=== PATIENT | female | born 1990 | race Caucasian/White ===

== ENCOUNTER 2025-05-16 13:11 | Outpatient (AMB) | payer BC, SELFPAY ==
[2025-05-16 13:36] VITALS: BP 129/82; PULSE 94; RESP 17; TEMP 36.7; O2SAT 99; BMI 26.6
--- NOTE | 2025-05-16 13:36 | AMB.OBINITIA ---
Vital Signs 05/16/25 13:36 Height 1.63 m Height Method Measured Weight 70.364 kg Weight Measurement Method Standing Scale BMI 26.6 BP 129/82 Blood Pressure Source Automatic Cuff Blood Pressure Location Right Upper Arm Position Sitting Respiration 17 Pulse 94 Pulse Source Monitor Temp 98.0 F Temp Source Temporal Artery Scan Pulse Oximetry (%) 99 Oxygen Delivery Method Room Air Allergies/Home Meds Allergies & Medications Allergies NKA Allergy (Unknown, Uncoded 05/21/25 11:30) Medication Reconciliation lorazepam 0.5 mg tablet 0.5 mg PO TID PRN ANXIETY #30 tabs 12/22/16 [Rx Confirmed 05/21/25] Intake Visit Data Collection New Patient or Established: New Patient (never been to [facility]) Reason for Visit:: AMENORRHEA/ Consent obtained for Telemed Visit: No Seen by Clinical Staff ONLY (RN/MA): No Newspaper Reporter Required: No Do You Feel Safe at Home: Yes Authorities Contacted: N/A PCP or OBGYN visit in last 3 months: No Hx Now: Yes Are you currently on any form of Control: No Last menstrual period: 02/27/25 Pain Present Currently: No Pain Scale Used: Rivas-Schmidt/Numerical Pain scale:: 0 Smoking Status Smoking Status: Never smoker Questionnaires Covid-19 Vaccine Questionnaire Has patient been vacinated for Covid-19 Have you been vacinated for Covid-19: Yes PHQ-9 PHQ-2 Over the last 2 weeks, how often have you been bothered by any of the following problems? 1. Little interest or pleasure in doing things: not at all 2. Feeling down, depressed, or hopeless: not at all Total score: 0 PHQ-9 3. Trouble falling or staying asleep, or sleeping too much: Not at all 4. Feeling tired or having little energy: Not at all 5. Poor appetite or overeating: Not at all 6. Feeling bad about yourself - or that you are a failure or have let yourself or your family down: Not at all 7. Trouble concentrating on things, such as reading the newspaper or watching television: Not at all 8. Moving or speaking so slowly that other people could have noticed? - Or the opposite - being so fidgety or restless that you have been moving around a lot more than usual: not at all 9. Thoughts that you would be better off or of hurting yourself in some way: Not at all Total score: 0 If you checked off any problems, how difficult have these problems made it for you to do your work, take care of things at home, or get along with other people?: not difficult at all Source: Developed by Drs. Odin Jamison, Madison Pena, Caleb Caballero and colleagues, with an educational ronald from [employer]. Social History Living Situation History Marital Status: Lives With: Family Housing: House Housing Other:: 4 y/o son, PAPO. 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 This was in [place]. She was my patient for her PNC. She also had gestational DM that . She had a recent SAB in 2023 but passed it on her own and did not require a D and C. She did not release her old records to me today. She presents today with her reporting fatigue and mild nausea but no severe vomiting. OB Ultrasound Indication Indication: Size, dates, viability OB Ultrasound Ultrasound technique: transabdominal Gestational sac assessment: Presence, location, size, shape: Live IUP with FHTs of 143. CRL 5.01 cm. GA 11 weeks. 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 No DM, HTN or asthma. Has mild anxiety OB Initial Visit OB Flowsheet OB Flowsheet Initial Weight: Not Recorded Date <del>?</del> EGA Weight BP Alb Glu CTX Pres Fundal ht FHR Mov Dilation Station Effacement Hx Notes Visit Note 05/16/25 <del>?</del> 11w 5d 70.364 kg 129/82 145 New OB visit. Labs ordered, official US ordered. NIPT ordered. Menstrual History Menstrual reliability: definite Flow: normal Menstrual regularity: regular Monthly: Yes Age at menarche: 11 On control pills at conception: No Date of positive home test: 03/16/25 OB History : 3 Para: 1 Hx # Pregnancies: 1 Hx Total # of Abortions (Spontaneous & Elective): 1 # of Living Children: 1 Delivery History 1st : Child's name: PAPO date: 07/30/21 sex: male Gestational age at delivery (weeks): 36 Infection History & Risk Evaluation History of STDs: none HIV risk evaluation: low risk Hepatitis B risk evaluation: low risk Patient or partner has history of Genital Herpes: No Genetic Screening & History Genetic Screening/Teratology Counseling - Includes patient, baby's father, or anyone in either family with: 1. Patient's age 35 years or older as of estimated date of delivery: No 2. Thalassemia (Yakut, Serbian, Mediterranean, or Background); MCV less than 80: No 3. Neural Tube Defect (Meningomyelocele, Spina Bifida, or Anencephaly): No 4. Congenital Heart Defect: No 5. Down Syndrome: No 6. Robert-Sachs (Ashkenazi Samaritan, Cajun, Telugu Nepalese): No 7. Cameron Disease (Ashkenazi Samaritan): No 8. Familial Dysautonomia (Ashkenazi Samaritan): No 9. Sickle Cell Disease or Trait (): No 10. Hemophilia or other blood disorders: No 11. Muscular Dystrophy: No 12. Cystic Fibrosis: No 13. [place]'s Chorea: No 14. Mental Retardation/Autism: No 15. Other inherited genetic or chromosomal disorder: No 16. Maternal Metabolic Disorder (EG,TYPE 1 Diabetes, PKU): No 17. Patient or baby's father had a child with defects not listed above: No 18. Recurrent loss or a stillbirth: No 19. Medications (including supplements, vitamins, herbs or otc drugs)/illicit/recreational drugs/alcohol since last menstrual period: No 20. Any other: No Infection History 1. Live with someone with TB or exposed to TB: No 2. Rash or viral illness since last menstrual period: No 3. Hepatitis B,C: No Other (see comments) Source: [employer] Exam Narrative Physical exam: well-healed pfannensteil scar General Limitations: no limitations General Appearance: alert, in no apparent distress, comfortable, cooperative, healthy appearing and well groomed Neck Neck exam: Present normal inspection, full ROM and trachea midline Chest Chest inspection: Present normal inspection and symmetric chest wall rise Resp Respiratory exam: Present normal lung sounds bilaterally Card Cardiovascular exam: Present regular rate, normal rhythm and normal heart sounds Abdominal Abdominal exam: Present soft and normal bowel sounds Extremities Extremities exam: Present normal inspection and full ROM Psych Psychiatric exam: Present normal affect and normal mood Skin Skin exam: Present warm, dry, intact and normal color Office Procedures OB Clinic LOC & Office Proc's Nursing/Assessment Patient Status: Established Patient OB Clinic Nursing Assessment: Medication Reconciliation, Update PMH in EMR and Vital Signs OB Clinic Coordination of Care: Complex Care and Chronic Disease 1-5, Consent,records obtained, informed consent, Education Simp Pt/Fam, Lab and Imaging orders, Results/Orders obtained and Staff clarify orders Special Needs: Heart tones Miscellaneous Interventions: Blood/Urine Collection Established Patient Charge Established Patient Point Assignment: 165 Established Patient Point Charge: EP Level 5 (160-above) In Clinic Bedside tests Bedside HCG: Yes Assessment & Plan Diagnosis / Problem List (1) : Status: Acute Qualifiers: Weeks of gestation: 12 weeks Qualified Code(s): Z3A.12 - 12 weeks gestation of (2) Previous section: Status: Acute Plan: For repeat CS at 39 weeks. Take baby ASA for hx PIH. PNV. All questions answered.
== END 2025-05-16 13:54 | disposition home or self-care (01) ==
LOC: HODSOBC 13:11
PROVIDERS: PCP Family Medicine; Referring Provider Family Medicine; Supervising Provider Obstetrics & Gynecology; Visit Provider Obstetrics & Gynecology
DX: O09.291 Supervision of pregnancy with other poor reproductive or obstetric history, first trimester (principal); O34.219 Maternal care for unspecified type scar from previous cesarean delivery; O09.521 Supervision of elderly multigravida, first trimester; Z3A.11 11 weeks gestation of pregnancy; Z87.59 Personal history of other complications of pregnancy, childbirth and the puerperium; Z86.32 Personal history of gestational diabetes
CPT/HCPCS: 81025; 99215; G0463

== ENCOUNTER 2025-06-16 08:41 | Outpatient (AMB) | payer BC, SELFPAY ==
[2025-06-16 08:55] VITALS: BP 123/82; PULSE 82; RESP 17; TEMP 36.3; O2SAT 99; BMI 26.3
--- NOTE | 2025-06-16 08:55 | OBCLNT_ITS ---
Vital Signs 06/16/25 08:55 Height 1.63 m Height Method Measured Weight 69.967 kg Weight Measurement Method Standing Scale BMI 26.3 BP 123/82 Blood Pressure Source Automatic Cuff Blood Pressure Location Right Upper Arm Position Sitting Respiration 17 Pulse 82 Pulse Source Monitor Temp 97.4 F Temp Source Temporal Artery Scan Pulse Oximetry (%) 99 Oxygen Delivery Method Room Air Allergies/Home Meds Allergies & Medications Allergies NKA Allergy (Unknown, Uncoded 06/16/25 08:56) Medication Reconciliation lorazepam 0.5 mg tablet 0.5 mg PO TID PRN ANXIETY #30 tabs 12/22/16 [Rx Confirmed 06/16/25] Intake Visit Data Collection New Patient or Established: Established Patient (seen at [facility] within 3 years) Reason for Visit:: OBC\ULTRASOUNDS Consent obtained for Telemed Visit: No Seen by Clinical Staff ONLY (RN/MA): No Fuel Technician Required: No Do You Feel Safe at Home: Yes Authorities Contacted: N/A PCP or OBGYN visit in last 3 months: Yes Date of Last PCP or OBGYN visit: 05/16/25 Hx Now: Yes Are you currently on any form of Control: No Pain Present Currently: No Pain Scale Used: Rivas-Schmidt/Numerical Pain scale:: 0 Smoking Status Smoking Status: Never smoker Questionnaires Covid-19 Vaccine Questionnaire Has patient been vacinated for Covid-19 Have you been vacinated for Covid-19: Yes PHQ-9 PHQ-2 Over the last 2 weeks, how often have you been bothered by any of the following problems? 1. Little interest or pleasure in doing things: not at all PHQ-9 8. Moving or speaking so slowly that other people could have noticed? - Or the opposite - being so fidgety or restless that you have been moving around a lot more than usual: not at all Source: Developed by Drs. Odin Jamison, Madison Pena, Caleb Caballero and colleagues, with an educational ronald from [employer]. Social History Living Situation History Marital Status: Lives With: Family Housing: House Housing Other:: 4 y/o sonARASELI. 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 She has a history of x 1 in 2020 for HELLP syndrome. Care OB Visit Log OB Flowsheet Initial Weight: Not Recorded Date -?-?-?-?-?-?-?-?-?-?-?-?- EGA Weight BP Alb Glu CTX Pres Fundal ht FHR Mov Dilation Station Effacement Hx Notes Visit Note 05/16/25 -?-?-?-?-?-?-?-?-?-?-?-?- 11w 5d 70.364 kg 129/82 145 New OB visit. Labs ordered, official US ordered. NIPT ordered. 06/16/25 -?-?-?-?-?-?-?-?-?-?-?-?- 16w 1d 69.967 kg 123/82 16 137 No movement yet no vaginal bleeding. Reviewed labs. No urine culture or urine gonorrhea chlamydia checked. These were ordered through [facility] [facility]. BREE Calculator Estimated Delivery Date Method Current WG Current Estimate 11/30/25 Ultrasound #1 16w 1d Other Estimates 12/04/25 LMP (Uncertain) 15w 4d Expected Delivery Route/Plan Repeat History of HELLP on baby aspirin Specific Issue/Plans Previous x 1 for elective repeat Notes Visit Date: 06/16/25 Last Updated by: Teresa Davies (OB Clinic)MD NIPT normal. Gender is a surprise. Will refer for level [address] Tucker as patient is AMA Patient recently had strep throat with swollen lymph nodes on her right throat. This is improved. She went to a walk-in clinic and was given amoxicillin. Visit Date: 05/16/25 Last Updated by: Teresa Davies (OB Clinic)MD [facility] Labs [facility]: O+/Ab-/RI/RPR NR/ HIV-/Hep BSag-/Hgb 11.5. NIPT 46 XY US CA imaging [place]:05/23/25 Live IUP CRL 6.3 cm 12 5/7 weeks EDC 2/1/26 Office Procedures OB Clinic LOC & Office Proc's Nursing/Assessment Patient Status: Established Patient OB Clinic Nursing Assessment: Medication Reconciliation, Update PMH in EMR and Vital Signs OB Clinic Coordination of Care: Complex Care and Chronic Disease 1-5, Education Complex Pt/Fam, Consent,records obtained, informed consent, Education Simp Pt/Fam, 4+ Authorizations needed and Lab and Imaging orders Special Needs: Heart tones Established Patient Charge Established Patient Point Assignment: 165 Established Patient Point Charge: EP Level 5 (160-above) Assessment & Plan Diagnosis / Problem List (1) Previous section: Status: Acute Plan: For repeat at 39 weeks (2) : Status: Acute Qualifiers: Weeks of gestation: 16 weeks Qualified Code(s): Z3A.16 - 16 weeks ges tation of (3) Advanced maternal age (AMA) in : Status: Acute Plan: Normal NIPT. Gender is a surprise. For level 2 ultrasound. On baby aspirin. Additional Plan Follow Up: 4 Weeks
== END 2025-06-16 09:12 | disposition home or self-care (01) ==
LOC: HODSOBC 08:41
PROVIDERS: Supervising Provider Obstetrics & Gynecology; Visit Provider Obstetrics & Gynecology
DX: O09.522 Supervision of elderly multigravida, second trimester (principal); Z3A.16 16 weeks gestation of pregnancy; Z98.891 History of uterine scar from previous surgery
CPT/HCPCS: 99215; G0463

== ENCOUNTER 2025-07-18 08:56 | Outpatient (AMB) | payer BC, SELFPAY ==
[2025-07-18 09:08] VITALS: BP 118/78; PULSE 88; RESP 16; TEMP 36.6; O2SAT 98; BMI 28.3
--- NOTE | 2025-07-18 09:08 | AMB.OBVISIT ---
Vital Signs 07/18/25 09:08 Height 1.63 m Height Method Stated Weight 75.41 kg Weight Measurement Method Standing Scale BMI 28.3 BP 118/78 Blood Pressure Source Automatic Cuff Blood Pressure Location Left Upper Arm Position Sitting Respiration 16 Pulse 88 Pulse Source Monitor Temp 97.9 F Temp Source Oral Pulse Oximetry (%) 98 Oxygen Delivery Method Room Air Allergies/Home Meds Allergies & Medications Allergies NKA Allergy (Unknown, Uncoded 07/18/25 09:10) Medication Reconciliation lorazepam 0.5 mg tablet 0.5 mg PO TID PRN ANXIETY #30 tabs 12/22/16 [Rx Confirmed 07/18/25] Intake Visit Data Collection New Patient or Established: Established Patient (seen at [facility] within 3 years) Reason for Visit:: CARE Seen by Clinical Staff ONLY (RN/MA): No Developing Machine Tender Required: No Do You Feel Safe at Home: Yes Authorities Contacted: N/A PCP or OBGYN visit in last 3 months: Yes Hx Now: Yes Are you currently on any form of Control: No Pain Present Currently: No Pain Scale Used: Rivas-Schmidt/Numerical Pain scale:: 0 Smoking Status Smoking Status: Never smoker Questionnaires Covid-19 Vaccine Questionnaire Has patient been vacinated for Covid-19 Have you been vacinated for Covid-19: No PHQ-9 PHQ-2 Over the last 2 weeks, how often have you been bothered by any of the following problems? 1. Little interest or pleasure in doing things: not at all 2. Feeling down, depressed, or hopeless: not at all Total score: 0 PHQ-9 3. Trouble falling or staying asleep, or sleeping too much: Not at all 4. Feeling tired or having little energy: Not at all 5. Poor appetite or overeating: Not at all 6. Feeling bad about yourself - or that you are a failure or have let yourself or your family down: Not at all 7. Trouble concentrating on things, such as reading the newspaper or watching television: Not at all 8. Moving or speaking so slowly that other people could have noticed? - Or the opposite - being so fidgety or restless that you have been moving around a lot more than usual: not at all 9. Thoughts that you would be better off or of hurting yourself in some way: Not at all Total score: 0 Source: Developed by Drs. Odin Jamison, Madison Pena, Caleb Caballero and colleagues, with an educational ronald from [employer]. Depression screen completed yes Social History Living Situation History Lives With: Family Housing: House Housing Other:: 4 y/o son, ARASELI. 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 Labs ordered, official US ordered. NIPT ordered. 06/16/25 <del>?</del> 16w 1d 69.967 kg 123/82 16 137 No movement yet no vaginal bleeding. Reviewed labs. No urine culture or urine gonorrhea chlamydia checked. These were ordered through [employer]. 07/18/25 <del>?</del> 20w 5d 75.41 kg 118/78 21 145 active +FM No UCs or LOF Gender a surprise. Ordered SS BREE Calculator Estimated Delivery Date Method Current WG Current Estimate 11/30/25 Ultrasound #1 20w 5d Other Estimates 12/04/25 LMP (Uncertain) 20w 1d Expected Delivery Route/Plan Repeat History of HELLP on baby aspirin Specific Issue/Plans 34 y/o Previous x 1 for elective repeat AMA: NIPT WNL (gender a surprise) Ordered Level II US and her insurance denied it Notes Visit Date: 06/16/25 Last Updated by: Teresa Davies (OB Clinic)MD NIPT normal. Gender is a surprise. Will refer for level [address] Tucker as patient is AMA Patient recently had strep throat with swollen lymph nodes on her right throat. This is improved. She went to a walk-in clinic and was given amoxicillin. Visit Date: 05/16/25 Last Updated by: Teresa Davies (OB Clinic)MD PN Labs [facility]: O+/Ab-/RI/RPR NR/ HIV-/Hep BSag-/Hgb 11.5. NIPT 46 XY US CA imaging [place]:05/23/25 Live IUP CRL 6.3 cm 12 5/7 weeks EDC 11/30/25 Office Procedures OB Clinic LOC & Office Proc's Nursing/Assessment Patient Status: Established Patient OB Clinic Nursing Assessment: Medication Reconciliation, Update PMH in EMR and Vital Signs OB Clinic Coordination of Care: Complex Care and Chronic Disease 1-5, Consent,records obtained, informed consent, Education Simp Pt/Fam, 1 Ins Authorization, Lab and Imaging orders, Results/Orders obtained and Staff clarify orders Special Needs: Heart tones Established Patient Charge Established Patient Point Assignment: 150 Established Patient Point Charge: EP Level 4 (120-155) Assessment & Plan Diagnosis / Problem List (1) 20 weeks gestation of : Status: Acute (2) Advanced maternal age (AMA) in : Status: Acute Plan: Normal NIPT. Level 2 ultrasound ordered but denied by insurance. Regular structural survey and refer to MFM if any anomalies are seen. (3) Previous section: Status: Acute Plan: For repeat scheduled at 39 weeks (4) : Status: Acute Qualifiers: Weeks of gestation: 20 weeks Qualified Code(s): Z3A.20 - 20 weeks gestation of
== END 2025-07-18 09:31 | disposition home or self-care (01) ==
LOC: HODSOBC 08:56
PROVIDERS: Supervising Provider Obstetrics & Gynecology; Visit Provider Obstetrics & Gynecology
DX: O09.522 Supervision of elderly multigravida, second trimester (principal); O09.292 Supervision of pregnancy with other poor reproductive or obstetric history, second trimester; O34.219 Maternal care for unspecified type scar from previous cesarean delivery; Z3A.20 20 weeks gestation of pregnancy; Z87.59 Personal history of other complications of pregnancy, childbirth and the puerperium
CPT/HCPCS: 99214; G0463

== ENCOUNTER 2025-08-15 09:31 | Outpatient (AMB) | payer BC, SELFPAY ==
[2025-08-15 09:57] VITALS: BP 129/85; PULSE 119; RESP 16; TEMP 36.2; O2SAT 98; BMI 28.9
--- NOTE | 2025-08-15 09:57 | AMB.OBVISIT ---
Vital Signs 08/15/25 09:57 Height 1.63 m Height Method Stated Weight 76.771 kg Weight Measurement Method Standing Scale BMI 28.9 BP 129/85 H Blood Pressure Source Automatic Cuff Blood Pressure Location Left Upper Arm Position Sitting Respiration 16 Pulse 119 H Pulse Source Monitor Temp 97.2 F Temp Source Oral Pulse Oximetry (%) 98 Oxygen Delivery Method Room Air Allergies/Home Meds Allergies & Medications Allergies NKA Allergy (Unknown, Uncoded 08/15/25 09:58) Medication Reconciliation lorazepam 0.5 mg tablet 0.5 mg PO TID PRN ANXIETY #30 tabs 12/22/16 [Rx Confirmed 08/15/25] Intake Visit Data Collection New Patient or Established: Established Patient (seen at [facility] within 3 years) Reason for Visit:: OBC Seen by Clinical Staff ONLY (RN/MA): No Pumping Supervisor Required: No Do You Feel Safe at Home: Yes Authorities Contacted: N/A PCP or OBGYN visit in last 3 months: Yes Date of Last PCP or OBGYN visit: 07/18/25 Hx Now: Yes Are you currently on any form of Control: No Pain Present Currently: No Pain Scale Used: Rivas-Schmidt/Numerical Pain scale:: 0 Smoking Status Smoking Status: Never smoker Questionnaires Covid-19 Vaccine Questionnaire Has patient been vacinated for Covid-19 Have you been vacinated for Covid-19: Yes PHQ-9 PHQ-2 Over the last 2 weeks, how often have you been bothered by any of the following problems? 1. Little interest or pleasure in doing things: not at all 2. Feeling down, depressed, or hopeless: not at all Total score: 0 PHQ-9 3. Trouble falling or staying asleep, or sleeping too much: Not at all 4. Feeling tired or having little energy: Not at all 5. Poor appetite or overeating: Not at all 6. Feeling bad about yourself - or that you are a failure or have let yourself or your family down: Not at all 7. Trouble concentrating on things, such as reading the newspaper or watching television: Not at all 8. Moving or speaking so slowly that other people could have noticed? - Or the opposite - being so fidgety or restless that you have been moving around a lot more than usual: not at all 9. Thoughts that you would be better off or of hurting yourself in some way: Not at all Total score: 0 If you checked off any problems, how difficult have these problems made it for you to do your work, take care of things at home, or get along with other people?: not difficult at all Source: Developed by Drs. Odin Jamison, Madison Pena, Caleb Caballero and colleagues, with an educational ronald from [employer]. Depression screen completed yes Social History Living Situation History Lives With: Family Housing: House Housing Other:: 4 y/o son, ARASELI. 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 Labs ordered, official US ordered. NIPT ordered. 06/16/25 <del>?</del> 16w 1d 69.967 kg 123/82 16 137 No movement yet no vaginal bleeding. Reviewed labs. No urine culture or urine gonorrhea chlamydia checked. These were ordered through [employer]. 07/18/25 <del>?</del> 20w 5d 75.41 kg 118/78 21 145 active +FM No UCs or LOF Gender a surprise. Ordered SS 08/15/25 <del>?</del> 24w 5d 76.771 kg 129/85 26 137 active Good movement no contractions no loss of fluids Glucose challenge test ordered. BREE Calculator Estimated Delivery Date Method Current WG Current Estimate 11/30/25 Ultrasound #1 24w 6d Other Estimates 12/04/25 LMP (Uncertain) 24w 2d Expected Delivery Route/Plan Repeat History of HELLP on baby aspirin Specific Issue/Plans 34 y/o Previous x 1 for elective repeat AMA: NIPT WNL (gender a surprise) Ordered Level II US and her insurance denied it normal structural survey from [facility] in chart from 07/28/2025 baby measuring 21-5/7 weeks with a due date of 12/03/2025 Notes Visit Date: 06/16/25 Last Updated by: Teresa Davies (OB Clinic)MD NIPT normal. Gender is a surprise. Will refer for level [address] Tucker as patient is AMA Patient recently had strep throat with swollen lymph nodes on her right throat. This is improved. She went to a walk-in clinic and was given amoxicillin. Visit Date: 05/16/25 Last Updated by: Teresa Davies (OB Clinic)MD [facility] Labs [facility]: O+/Ab-/RI/RPR NR/ HIV-/Hep BSag-/Hgb 11.5. NIPT 46 XY US [place] imaging [facility]:05/23/25 Live IUP CRL 6.3 cm 12 5/7 weeks EDC 11/30/25 Office Procedures OBC Clinic LOC & Office Proc's Nursing/Assessment Patient Status: Established Patient OB Clinic Nursing Assessment: Medication Reconciliation, Update PMH in EMR and Vital Signs OB Clinic Coordination of Care: Consent,records obtained, informed consent, Lab and Imaging orders, Results/Orders obtained and Staff clarify orders Special Needs: Heart tones Established Patient Charge Established Patient Point Assignment: 95 Established Patient Point Charge: EP Level 3 (80-115) Assessment & Plan Diagnosis / Problem List (1) : Status: Acute Qualifiers: Weeks of gestation: 24 weeks Qualified Code(s): Z3A.24 - 24 weeks gestation of Plan: Glucose challenge test ordered (2) Previous section: Status: Acute Plan: For elective repeat at 39 weeks (3) Advanced maternal age (AMA) in : Status: Acute Plan: Normal NIPT and structural survey. Insurance declined level 2 ultrasound. Additional Plan Follow Up: 4 Weeks
== END 2025-08-15 10:40 | disposition home or self-care (01) ==
LOC: HODSOBC 09:31
PROVIDERS: Supervising Provider Obstetrics & Gynecology; Visit Provider Obstetrics & Gynecology
DX: O09.522 Supervision of elderly multigravida, second trimester (principal); O09.292 Supervision of pregnancy with other poor reproductive or obstetric history, second trimester; O34.219 Maternal care for unspecified type scar from previous cesarean delivery; Z3A.24 24 weeks gestation of pregnancy
CPT/HCPCS: 99213; G0463